=== PATIENT | female | born 1995 | race Caucasian/White ===

== ENCOUNTER 2019-05-12 05:46 | Day surgery (SDC) | payer SELFPAY ==
[2019-05-05 13:35] VITALS: BP 114/77; PULSE 98; RESP 16; TEMP 36.1; O2SAT 99; BMI 29.5
[2019-05-05 13:51] LABS: Hematocrit 42.6 % (37-47); Hemoglobin 13.7 g/dL (12.0-15.0); Mean Corp Hgb Conc 32.2 g/dL (32-36); Mean Corpuscular Hgb 30.4 pg (27.0-32.0); Mean Corpuscular Volume 94.7 fL (81-99); Mean Platelet Vol. 11.5 fl (6.2-12.0); Platelet Count 298 K/mm3 (150-450); RBC Distribution Width CV 12.4 % (11.6-14.6); RBC Distribution Width SD 43.2 fl (35.1-43.9); White Blood Count 4.1 K/mm3 (4.4-11.0)
[2019-05-05 14:03] LABS: Partial Thromboplast Time 25.2 Seconds (24.1-36.2)
[2019-05-05 14:13] LABS: ALB/GLOB Ratio 1.3 RATIO (0.9-2.4); AST(SGOT) 20 U/L (15-37); Alanine Aminotransfer ALT/SGPT 37 U/L (13-56); Albumin, Serum 4.3 g/dL (3.2-5.0); Alkaline Phosphatase 40 U/L (45-117); Anion Gap 7 (5-15); BUN 12 mg/dL (7-18); BUN/Creat Ratio 10.4 RATIO (10-20); Calcium,Total 8.8 mg/dL (8.5-10.1); Chloride 109 mmol/L (98-107); Creatinine, Serum 1.15 mg/dL (0.55-1.02); EST Glomerular Filtration Rate 62 mL/min (>60); Est Glom Filt Rate - Afr Amer 75 mL/min (>60); Estimated Creatinine Clearance 62.94 ml/min; Globulin 3.2 g/dL (2.2-4.2); Glucose 101 mg/dL (74-106); Potassium 5.2 mmol/L (3.5-5.1); Protein, Total 7.5 g/dL (6.4-8.2); Sodium Level 140 mmol/L (136-145)
[2019-05-05 14:16] LABS: hCG Titer Quant., Serum < 1 mIU/mL (1-3)
--- NOTE | 2019-05-11 21:38 | PCM.HP.BLA ---
History and Physical Date of Admission: 05/12/19 Surgical History and Physical Date: 05/11/2019 Name: SALMA BAILEY Age: 24 Date of : 1995 Salma Bailey, a 24 year old female 2 0 0 0 2, presents for L/S BS and BTO with filsche clips on May 12, 2019 at 7:30. -- Desires Permanent Sterilization; Hx Heart Transplant -- Salma presents for a tubal consult. She is a 24yo G 2,P 2 brenna female. Pt had a heart transplant 02/07/19 s/p cardiomyopathy PP. Pt delivered her 2nd child via 01/13/19 and it was discovered she had severe cardiomyopathy and was taken to [facility] for a transplant. Peg Driver advised no more pregnancies. She was given Depo which will give control coverage until May 20 2019. Pt would like to have a tubal juan jose Wants Tubal- Medically Indicated MEDICATIONS HISTORY: Patient is also takin. aspirin 81 mg tablet,delayed release, 1 qd 2. Bactrim 400 mg-80 mg tablet, 1 tab M,W,F 3. CellCept 500 mg tablet, 1 qd 4. Fosamax 70 mg tablet, 1tab every Friday 5. pravastatin 20 mg tablet, 1qd 6. Prograf 1 mg capsule, 1.5mgin AM 2mg in PM 7. Drisdol 50,000 unit capsule, One pill by mouth once a week on Friday 8. prednisone 5 mg tablet, 3 po once daily 9. Protonix 40 mg tablet,delayed release, One pill by mouth once a day 10. Valcyte 450 mg tablet, Two once daily ALLERGIES: No Known Drug Allergies Infections - Chicken pox childhood Illnesses - Heart Transplant Hospitalizations - Childbirth and see surgery Review of Systems: GENERAL - Denies fever, or chills SKIN - Denies skin changes EYES - Denies visual changes EARS - Denies difficulty hearing NOSE - Denies nasal congestion or bleeding MOUTH - Denies sore throat or difficulty swallowing NECK - Denies pain or swelling RESPIRATORY - Denies shortness of breath or wheezing CARDIOVASCULAR - Denies palpitations or chest pain GASTROINTESTINAL - Denies nausea, vomiting, diarrhea, constipation GENITOURINARY - Denies dysuria, frequency of urination, incontinence of urine MUSCULOSKELETAL - Denies joint or muscle pain NEUROLOGICAL - Denies localized numbness or weakness PSYCHIATRIC - Denies depression or anxiety ENDOCRINE - Denies heat or cold intolerance, weight loss or gain HEMATO-IMMUNOLOGIC - Denies excesive bleeding with cuts SOCIAL HISTORY: Alcohol Use - denies drinking Smoking - denies smoking Diet - low sodium and low sugar Lifestyle - moderate stress lifestyle Exercise - regular Seat Belt Use - most of the time Employer - Unemployed Job Description - Housewife Illicit Drug Use - denies use of street drugs Sexual Activity - Spouse-Sig Other Name - Dung Spouse-Sig Other Occupation - Construction Children Name(s) - 2 children Control - Depo FAMILY HISTORY: nc MENSTRUAL HISTORY: LMP Known?- Definite, LMP - 05/05/19 PAST PREGNANCIES: Total Pregnancies - 2; Full Term Pregnancies - 2; Premature - 0; Abortions, Induced - 0; Abortions, Spontaneous - 0; Ectopics - 0; Multiple Births - 0; Living Children - 2 SURGICAL HISTORY: 1. Tonsillectomy as child 2. Inguinal hernia repair as child 3. 02/07/2019 Heart Transplant ; Dr Saucedo PHYSICAL EXAM BP- 102/70 Sitting, Right arm, regular cuff Weight- 166.56858 lbs Height- 63 inch BMI:29.47 CONSTITUTIONAL - NAD, well nourished, and well developed SKIN - No rash, lesions, or ulcers HEENT - Normocephalic, PERRLA, EOMI NECK - No nodes, no nuchal rigidity and thyroid normal size and texture LYMPH NODES - Palpation of lymph nodes in neck and groins within normal limits LUNGS - CTA x2 without wheezes, crackles or rales CARDIAC - Regular rate and rhythm without rubs, murmurs, or gallops ABDOMEN - Without hepatosplenomegaly, distention, masses, rebound, or guarding; normal bowel sounds; no hernias EXTREMITIES - No edema or calf tenderness NEUROLOGICAL - Cranial nerves II-XII grossly intact PSYCHIATRIC - A and O to time, place, person, mood and affect ASSESSMENT/PLAN: 1. Desires Sterilization Discussed RBAs of LST with bilateral salpingectomy and filsche clip placement and will proceed. All questions answered.
[2019-05-12 06:11] VITALS: BP 104/81; PULSE 94; RESP 16; TEMP 36.6; O2SAT 100; BMI 29.2
[2019-05-12] MEDS: Lactated Ringers 1,000 ML 100 ML IV ×3 (06:29→11:43)
[2019-05-12 06:48] LABS: Internal QC Validated? YES +Cl - CLEAR BKGD; Pregnancy, Serum, hCG Quali. NEGATIVE Negative
--- NOTE | 2019-05-12 07:30 | FALS_PTH ---
PATIENT: SALMA BERMUDEZ LOC: [facility] [place] U#:[id number] AGE/SX: 24/ ROOM: RE05/12/[address]: Dr. Alexandro Oliveira MD : 1995 BED: DIS: 05/12/2019 SPEC #: [id number] RECD: 05/12/19 09:45 STATUS: LEWIS NOELLE #: [id number] RUDY: 05/12/19 07:[address]: Alexandro Oliveira DEPT: SURGICAL PATHOLOGY RECD BY: Aye Ramírez ENTERED: 05/12/19 11:25 SP TYPE: FALL TUBES OTHR DR: Dr. Abraham Calle, DO Tissues: Fallopian tube Procedures: Surgery Specimen Level II HEADER OPERATION: Laparoscopic, bilateral tubal occlusion with Filshie PRE-OP DIAGNOSIS: Desires sterilization TISSUE SUBMITTED: Bilateral fallopian tubes MICROSCOPIC DIAGNOSIS Right and left fallopian tubes, bilateral salpingectomies: Two complete cross-sections of fallopian tubes with no pathologic change. AM:wai 05/13/19 MICROSCOPIC DESCRIPTION Slides are reviewed. GROSS DESCRIPTION Received is one container labeled with the patient's name and designated bilateral fallopian tubes. The specimen consists of two fallopian tubes with an average length of 5 cm and has an average diameter of 0.6 cm. Both fallopian tubes have normal fimbriated ends. No mass lesions are identified. Transition Advisor sections are submitted in two cassettes as follows: 1 - one fallopian tube, 2 - the other fallopian tube. / AM:wai 05/12/19 TC:4 CPT: 57371 x2
--- NOTE | 2019-05-12 07:31 | OP.PCM_ITS ---
Report of Operation Date of Procedure: 05/12/19 Pre-Operative Diagnosis: Desires Permanent Sterilization Post-Operative Diagnosis: Desires Permanent Sterilization Surgery/Procedure Performed:: Bilateral Laparoscopic Tubal Sterilization with Filshie Clips and Distal Salpingectomy Description of Surgical Findings:: Normal Pelvis Type of Anesthesia:: General - Endotracheal Anesthesiologist: Cuauhtemoc Spencer Estimated Blood Loss (mL): Minimal Fluids Replaced: Crystalloid Description of Procedure: Surgeon: Alexandro Oliveira MD, FACOG Findings: 8 cm uterus with normal appearing fallopian tubes and ovaries Indications: This is a 34 year old patient 2 para 2 who has the above diagnosis. She had a heart transplantation several months ago for cardiomyopathy and it has been recommended that she have sterilization because in the future is contraindicated. She is aware of the permanent n ature of the procedure, the failure rate of 1-2%, and the availability of other nonpermanent control options. All questions were answered to consider the patient well-informed. Procedure: The patient was taken to the operating room where after induction of general anesthesia, she was placed in the dorsolithotomy position and prepped and draped in the usual sterile fashion. The bladder was drained of approximately 150 cc of clear yellow urine with a catheter. Anterior cervix was grasped with the tenaculum. Conn cannula was placed and attention was turned toward the laparoscopic portion of the procedure. Approximately 20 cc of half percent ropivacaine was injected subumbilically, suprapubically and midway between. A 5 mm bladeless trocar was placed subumbilically and intraperitoneal placement confirmed. After CO2 insufflation was complete, a 7/8 mm bladeless trocar was introduced suprapubically. The above findings were noted. An alligator grasper port was then placed midway between these 2 ports for tubal manipulation. Each fallopian tube was identified to its fimbriated end and an Enseal device was used to divide the mesosalpinx leaving approximately 1 cm stump of fallopian tube on each side. Filshie clips were placed on the stump of each fallopian tube. The peritoneal cavity and upper abdomen were examined and noted to be normal. Photographs were taken. Laparoscopic instruments with as much CO2 gas as possible were removed and incisions were closed with interrupted 4-0 Monocryl suture. Steri-Strips placed across the incision. Vaginal instruments were removed. The cervix was examined and there was noted to be some bleeding from where the tenaculum had been placed. Two horizontal mattress 0 Vicryl sutures were placed to help with hemostasis of the cervix. Patient tolerated procedure well was taken to recovery room in satisfactory condition sponge instrument and needle counts were all reportedly correct. Estimated blood loss for the case was minimal. There were no apparent complications of the surgery. Specimens to pathology was bilateral tubes. Grafts/Implants Used: None - Complications None - Admit VTE Documentation VTE Present on Admission: Yes VTE Mechan Device Prophylaxis: SCD's
--- NOTE | 2019-05-12 07:36 | PCM.DC.TUB ---
Discharge Diet: No Restrictions Discharge Activity: Return to Normal Activity, May Drive - when you are no longer taking pain/narcotic medicines., May Shower, May Take a Tub Bath Additional Activity Instructions:: Ambulate often the next week after surgery. Nothing in the vagina for 5 days. Call your doctor if your incision/area has: Continuous Slow Oozing, Sudden Increased Bleeding, Increased Pain/ Swelling, Increased Redness, Foul Smelling Discharge Call your doctor if you observe: Fever of 101 or Higher, Inability to urinate, Inability to have a bowel movement, Using more than one pad per hour Allergies/Adverse Reactions: Allergies No Known Allergies Allergy (Verified 05/12/19 05:55) Medications to take at Discharge Acetaminophen [Tylenol] 325 mg PO PRN PRN 05/05/19 Alendronate Sodium [Fosamax] 70 mg PO FR 05/05/19 Aspirin [Aspirin, Baby] 81 mg PO DAILY@0800 05/05/19 Calcium Carbonate/Vitamin D3 [Calcium 500+D Tablet Chew] 1 ea PO BID 05/05/19 Ergocalciferol (Vitamin D2) [Drisdol] 50,000 unit PO FR 05/05/19 Magnesium Oxide 800 mg PO TID 05/05/19 Mycophenolate Mofetil [Cellcept] 1,000 mg PO BID 05/05/19 Pantoprazole Sodium [Protonix] 40 mg PO LUNCH 05/05/19 Pravastatin [Pravachol] 20 mg PO QHS 05/05/19 Prednisone 15 mg PO DAILY 05/05/19 Smz/Tmp Ds [Bactrim Ds] 1 tab PO MOWEFR 05/05/19 Tacrolimus Anhydrous [Prograf] 1.5 mg PO BID 05/05/19 Valganciclovir Hydrochloride [Valcyte] 900 mg PO DAILY 05/05/19 Oxycodone [Oxyir] 5 mg PO Q6H PRN PRN 7 Days #10 tab 05/12/19 The following prescriptions were given: Oxycodone [Oxyir] 5 mg PO Q6H PRN PRN 7 Days #10 tab PRN Reason: Severe Pain (6-06/17) Prescription Printed Orders to be completed after discharge: ,Urine Time Frame: 05/12/19, Facility: [facility], Location: Laboratory Primary Care Physician: Alva,Abraham, DO [Primary Care Provider] - Test Results: Test results from this visit will be discussed in further detail at your follow-up appointment, if applicable. Please Follow Up With: Alexandro Oliveira MD - [phone] When: 2 to 3 weeks
[2019-05-12] MEDS: Ropivacaine 0.5% 30 ML Vial (08:14)
[2019-05-12 08:41] VITALS: BP 104/81; BP 125/82; PULSE 101; RESP 16; TEMP 36.8; O2SAT 99
[2019-05-12 09:00] VITALS: BP 104/81; BP 125/101; PULSE 100; RESP 16; O2SAT 100
[2019-05-12 09:15] VITALS: BP 104/81; BP 129/101; PULSE 96; RESP 16; TEMP 36.4; O2SAT 100
[2019-05-12] MEDS: Acetaminophen 500 MG Tablet 1000 MG PO (10:10)
[2019-05-12 13:32] VITALS: BP 104/81; BP 114/72; PULSE 94; RESP 16; TEMP 36.7; O2SAT 99
== END 2019-05-12 13:32 | disposition home or self-care (01) ==
LOC: SDC 05:46 → AC 05:47
PROVIDERS: Anesthesiology; Family Provider Family Medicine; PCP Family Medicine; Referring Provider Obstetrics & Gynecology; Visit Provider Obstetrics & Gynecology
PROC: (CPT 58671; principal; 2019-05-12 07:15)
DX: Z30.2 Encounter for sterilization (principal); K21.9 Gastro-esophageal reflux disease without esophagitis; E78.00 Pure hypercholesterolemia, unspecified; Z94.1 Heart transplant status; Z79.82 Long term (current) use of aspirin; Z79.899 Other long term (current) drug therapy
CPT/HCPCS: 58670; 36415; 80053; 84702; 84703; 85027; 85610; 85730; 86850; 86900; 86901; 88302; J7120; J2405